=== PATIENT | female | born 1970 | race Caucasian/White ===

== ENCOUNTER 2017-05-26 13:33 | Emergency (ER) | payer MEDICAID, OTHER ==
[2017-05-26 13:46] VITALS: BP 142/85
--- NOTE | 2017-05-26 14:00 | UC ---
[facility] Dental HPI - HPI Summary HPI Summary: complaint of dental pain that started approx 2 months ago -right front tooth bottom jaw2 days ago pain has worsened and is constant chewing makes it more painful pressure in her right ear alternating tylenol and ibuprofen without effect has dental appt 05/28/17 - History of Current Complaint Chief Complaint: UCDentalProblem Stated Complaint: DENTAL COMPLAINT Time Seen by Provider: 05/26/17 13:49 Hx Obtained From: Patient Hx Last Menstrual Period: 05/04/17 - Allergies/Home Medications Allergies/Adverse Reactions: Allergies Allergy/AdvReac Type Severity Reaction Status Date / Time Sulfa Antibiotics Allergy Hives Verified 05/26/17 13:46 Ibuprofen AdvReac Vomiting Verified 05/26/17 13:46 Home Medications: Home Medications Baclofen TAB* [Lioresal TAB*] 10 mg PO TID PRN 05/26/17 [History Confirmed 05/26] Hydrochlorothiazide TAB* [Hydrodiuril TAB*] 25 mg PO DAILY 05/26/17 [History Confirmed 05/26/17] Labetalol TAB* [Trandate TAB*] 100 mg PO BID 05/26/17 [History Confirmed ] Morphine TAB (NF) [Morphine 30 MG TAB (NF)] 15 mg PO Q6H PRN 05/26/17 [History Confirmed 05/26/17] Omeprazole CAP* [Prilosec CAP* 20 MG] 40 mg PO EVERY OTHER DAY 05/26/17 [ History Confirmed 05/26/17] Sertraline* [Zoloft*] 200 mg PO DAILY 05/26/17 [History Confirmed 05/26/17] PMH/Surg Hx/FS Hx/Imm Hx Previously Healthy: Yes - chronic back pain Cardiovascular History: Hypertension - Surgical History Surgical History: Yes Surgery Procedure, Year, and Place: right knee 1995 - Family History Known Family History: Negative: Cardiac Disease, Hypertension, Diabetes - Social History Occupation: Employed Full-time Lives: With Family Alcohol Use: None Substance Use Type: None Smoking Status (MU): Heavy Every Day Tobacco Smoker Amount Used/How Often: 1 ppd Cessation Counseling: Patient Advised to Stop Review of Systems Constitutional: Negative Skin: Negative Eyes: Negative ENT: Dental Pain Respiratory: Negative Cardiovascular: Negative Gastrointestinal: Negative Genitourinary: Negative Motor: Negative Neurovascular: Negative Musculoskeletal: Negative Neurological: Negative Psychological: Negative All Other Systems Reviewed And Are Negative: Yes Physical Exam Triage Information Reviewed: Yes Appearance: No Pain Distress, Well-Nourished Vital Signs: Initial Vital Signs Temp 98.4 F 05/26/17 13:40 Pulse 78 05/26/17 13:40 Resp 16 05/26/17 13:40 BP 142/85 05/26/17 13:40 Pulse Ox 97 05/26/17 13:40 Vital Signs Reviewed: Yes Eyes: Positive: Conjunctiva Clear ENT: Positive: Pharynx normal, TMs normal. Negative: Nasal congestion Dental: Positive: Abscess @ - between Neck: Positive: No Lymphadenopathy Respiratory: Positive: Lungs clear, Normal breath sounds, No respiratory distress Cardiovascular: Positive: RRR, No Murmur, Pulses Normal Abdomen Description: Positive: Nontender, Soft Bowel Sounds: Positive: Present Musculoskeletal: Positive: No Edema Neurological: Positive: Alert Psychological Exam: Normal Skin Exam: Normal Dental Complaint Course/Dx - Course Course Of Treatment: exam completed. 46yr old female pt with dental abscess [id number], will start amoxicillin today, no rx for narcotics d/t currently taking morphineER 15 mg tab PO TID. will medicate with zofran and toradol today then she can continue tylenol or ibuprofen until seen by dentist. has followup with dentist 05/28/17 - Differential Dx/Diagnosis Differential Diagnosis/Dx: Dental Abscess, Dental Caries Provider Diagnoses: dental abscess, elevated blood pressure Discharge - Discharge Plan Condition: Stable Disposition: HOME Prescriptions: Amoxicillin CAP* [Amoxicillin 500 MG CAP*] 500 mg PO Q12H #20 cap Patient Education Materials: Dental Abscess (ED) Referrals: [facility] [Outside] Additional Instructions: DENTAL ABSCESS What is a Dental Abscess? A dental abscess is an infection around the root of a tooth or in the gums or jawbone. The infection causes pus to collect, and a lump can appear. Dental abscesses often get their start when bacteria invade a decayed tooth; the decay may then travel to the gums or jawbone. Decay can also begin in the mouth when teeth are not brushed or flossed properly. Symptoms Might Include: In general, you'll start to have a fever, redness and swelling of the gums or cheek. If you have a lump it may feel hot. Other signs include tooth or mouth pain, a loose tooth, or not being able to close your mouth all the way. If the abscess spreads, your face, neck, or chest may swell. Treatment Recommendations: Rinse your mouth with warm water every hour or as needed to ease the pain. This will help draw the infection from the abscess. For pain, you may take non-prescription medicines such as acetaminophen ( Tylenol) or ibuprofen (Motrin, Advil). To help ease the pain, do not chew on the sore side for at least 2 days; you may need to limit yourself to a liquid diet. Putting ice on your face over the affected area may also relieve the pain. Apply the ice for 10 to 20 minutes out of every hour. Do not leave the ice on for long periods or you can get frostbite. If the abscess is drained, there may be a small hole or drain. Keep the area free of food by rinsing with water after eating. You'll need to return or be seen by a dentist to have the drain removed. The healthcare provider may have prescribed an antibiotic medicine. The medicine should be taken until it is completely gone, even if you are feeling better. If you stop taking the medicine early, the infection may not be completely gone, and the medication may not work the next time. To prevent abscesses: [place] regularly with a toothbrush recommended by your dentist. Floss daily and use a fluoride mouthwash, toothpaste, tablets, or supplements as instructed by your dentist or dental hygienist. Reduce the amount of sugar in your diet. Call Your Doctor or Return Here IF: You have a high temperature Your pain becomes worse You have any new symptoms or problems that may be due to the medicine you are taking You have new or increased swelling in your face, jaw, cheek, eye, or neck You have any other new symptoms that worry you
[2017-05-26] MEDS ORDERED: Ketorolac INJ* 60 MG/2 ML VIAL IM ONE (14:04)
[2017-05-26] MEDS ORDERED: Ondansetron ODT TAB* 4 MG PO ONE (14:06)
== END 2017-05-26 14:44 | disposition home or self-care (01) ==
LOC: UCCORT 13:33
DX: K04.7 Periapical abscess without sinus (principal); R03.0 Elevated blood-pressure reading, without diagnosis of hypertension; I10 Essential (primary) hypertension; Z87.891 Personal history of nicotine dependence; M54.9 Dorsalgia, unspecified
CPT/HCPCS: 96372; 99212; A9270-GY; G0463; J1885

== ENCOUNTER 2017-09-01 13:04 | Emergency (ER) | payer MEDICAID, OTHER ==
--- NOTE | 2017-09-01 13:13 | UC ---
Dental HPI - HPI Summary HPI Summary: 47 y/o female presents to the urgent care c/o Rt upper jaw dental pain since . Pt states pain is 10/10. She reports she is taking Morphine PO for degenerative disc disease on pain management at [facility]. Morphine has helped. She called a dentist but they told her to come to the urgent care since they couldn't give her a soon appt. Pt denies fever, RODARTE, TMJ pain, trismus , SOB, chest pain, N/V/D - History of Current Complaint Stated Complaint: TOOTH PAIN Time Seen by Provider: 09/01/17 13:12 Hx Obtained From: Patient Hx Last Menstrual Period: 08/16/2017 ?: No Onset/Duration: Sudden Onset, Lasting Days - 2 days, Still Present Severity: Severe Pain Intensity: 10 Aggravating Factor(s): Chewing Alleviating Factor(s): Other (see comments) - morphine - Allergies/Home Medications Allergies/Adverse Reactions: Allergies Allergy/AdvReac Type Severity Reaction Status Date / Time Sulfa Antibiotics Allergy Hives Verified 09/01/17 13:32 Home Medications: Home Medications Aspirin [Aspirin 81 MG TAB] 81 mg PO DAILY 09/01/17 [History Confirmed 09/01/17] PMH/Surg Hx/FS Hx/Imm Hx Previously Healthy: Yes Cardiovascular History: Hypertension GI/ History: Gastroesophageal Reflux Other Neurological History: Degenerative disc disease Psychological History: Depression - Surgical History Surgical History: Yes Surgery Procedure, Year, and Place: right knee 1995 - Family History Known Family History: Positive: Hypertension Negative: Cardiac Disease, Diabetes - Social History Occupation: Employed Full-time Lives: With Family Alcohol Use: None Substance Use Type: None Smoking Status (MU): Heavy Every Day Tobacco Smoker Amount Used/How Often: 1 ppd Review of Systems Constitutional: Negative Skin: Negative Eyes: Negative ENT: Other - RT upper molar pain Respiratory: Negative Cardiovascular: Negative Gastrointestinal: Negative Genitourinary: Negative Motor: Negative Neurovascular: Negative Musculoskeletal: Negative Neurological: Negative Psychological: Negative Is Patient Immunocompromised?: No All Other Systems Reviewed And Are Negative: Yes Physical Exam Triage Information Reviewed: Yes Appearance: Well-Appearing, No Pain Distress, Well-Nourished, Obese Vital Signs Reviewed: Yes Eye Exam: Normal Eyes: Positive: Conjunctiva Clear ENT Exam: Normal ENT: Positive: Normal ENT inspection, Hearing grossly normal, Pharynx normal, TMs normal - B/L. Negative: Tonsillar swelling, Tonsillar exudate, Trismus Dental: Positive: Percussion Tenderness @ - on molar 4, Gross Decay/Caries @, Cellulitis @ - around molar 2 and 4 of the RT upper jaw, Cervical Lymphadenopathy - anterior cervical lymphnode tender and enlarged Neck exam: Normal Neck: Positive: Supple, Nontender Respiratory Exam: Normal Respiratory: Positive: Chest non-tender, Lungs clear, Normal breath sounds Cardiovascular Exam: Normal Cardiovascular: Positive: RRR, No Murmur, Pulses Normal, Brisk Capillary Refill Abdominal Exam: Normal Abdomen Description: Positive: Nontender, No Organomegaly, Soft. Negative: CVA Tenderness (R), CVA Tenderness (L) Bowel Sounds: Positive: Present Musculoskeletal Exam: Normal Musculoskeletal: Positive: Strength Intact, ROM Intact, No Edema Neurological Exam: Normal Psychological Exam: Normal Skin Exam: Normal Dental Complaint Course/Dx - Course Course Of Treatment: 47 y/o female presents to the urgent care c/o Rt upper jaw dental pain since 08/30/2017. Pt states pain is 10/10. She reports she is taking Morphine PO for degenerative disc disease on pain management at [facility]. Morphine has helped. She called a dentist but they told her to come to the urgent care since they couldn't give her a soon appt. Pt denies fever, RODARTE, TMJ pain, trismus, SOB, chest pain, N/V/D. HX obtained. Pt with molar #2 and 4 of the Rt upper jaw with caries and swelling around it on examination. POt Rx Amoxicillin PO and Naproxen PO for pain. Pt given viscous lidocaine at the clinic and pain decrease. Pt advised F/u with Dentist or a dentist from the list provided as soon as possible for further treatment. Pt's BP elevated, PT with PMHX of HTN. Pt advised to decrease salt in your diet, monitor your BP, if it continues to be elevated please f/y with your PCP for further management. Pt understood and agreed with plan of care. - Differential Dx/Diagnosis Differential Diagnosis/Dx: Dental Abscess, Dental Caries, Fractured Tooth, Peritonsillar Abcess, TMJ Syndrome, Tonsillitis Provider Diagnoses: 1- Acute dental pain w/ cellulitis of molar #2 and 4. 2- Dental caries at molar #4. 3- Uncontrolled HTN Discharge - Discharge Plan Condition: Stable Disposition: HOME Prescriptions: Amoxicillin PO (*) [Amoxicillin 500 MG CAP*] 500 mg PO TID #30 cap Naproxen TAB* [Naprosyn 250 mg TAB*] 500 mg PO Q8H PRN #30 tab PRN Reason: Pain Patient Education Materials: Toothache (ED), Low Sodium Diet (ED) Referrals: My Hernandez [Primary Care Provider] - 2 Days Additional Instructions: 1-Please take full course of antibiotic to avoid resistance. 2- Take Naproxen as instructed after meals to alleviate pain and swelling. 3- F/u with your Dentist or a dentist from the list provided as soon as possible for further treatment. 4- If symptoms do not improve or worsen please return to the urgent care or f/u with your PCP for further evaluation and treatment 5- Your BP today is elevated, please decrease salt in your diet, monitor your BP , if it continues to be elevated please f/y with your PCP for further management.
[2017-09-01 13:32] VITALS: BP 151/82
[2017-09-01] MEDS ORDERED: Lidocaine 2% VISCOUS* 15 ML UDC SWISH SPIT ONE ×2 (13:49→14:01)
== END 2017-09-01 14:27 | disposition home or self-care (01) ==
LOC: UCCORT 13:04
DX: K08.89 Other specified disorders of teeth and supporting structures (principal); L03.818 Cellulitis of other sites; K02.9 Dental caries, unspecified; I10 Essential (primary) hypertension; K21.9 Gastro-esophageal reflux disease without esophagitis; F17.210 Nicotine dependence, cigarettes, uncomplicated; Z88.2 Allergy status to sulfonamides
CPT/HCPCS: 99212; G0463

== ENCOUNTER 2018-08-21 13:10 | Emergency (ER) | payer SELFPAY ==
[2018-08-21 14:35] VITALS: BP 141/70
--- NOTE | 2018-08-21 15:19 | UC ---
FLU HPI - HPI Summary HPI Summary: Pt c/o sudden onset of cough, nasal congestion, sinus pressure X 1 day. - History of Current Complaint Chief Complaint: UCRespiratory Stated Complaint: CONGESTION,SORE THROAT Time Seen by Provider: 08/21/18 14:48 Hx Obtained From: Patient Hx Last Menstrual Period: 08/03/18 ?: No Onset/Duration: Sudden Onset, Lasting Days, Still Present Severity Currently: Mild Severity Initially: Moderate Pain Intensity: 7 Associated Signs & Symptoms: Positive: Cough, Nasal Congestion Related Hx: Possible Flu/Infectious Exposure - Risk Factors Influenza Risk Factors: Negative - Allergy/Home Medications Allergies/Adverse Reactions: Allergies Allergy/AdvReac Type Severity Reaction Status Date / Time Sulfa (Sulfonamide Allergy Hives Verified 08/21/18 14:24 Antibiotics) Home Medications: Home Medications Topiramate [Topamax] 50 mg PO DAILY 08/21/18 [History Confirmed 08/21/18] PMH/Surg Hx/FS Hx/Imm Hx Previously Healthy: Yes - Surgical History Surgical History: Yes Surgery Procedure, Year, and Place: right knee 1995. 2 C-SECTIONS - Family History Known Family History: Positive: Hypertension Negative: Cardiac Disease, Diabetes - Social History Occupation: Employed Full-time Lives: With Family Alcohol Use: None Substance Use Type: None Smoking Status (MU): Heavy Every Day Tobacco Smoker Amount Used/How Often: 1 ppd Have You Smoked in the Last Year: Yes Household Exposure Type: Cigarettes Review of Systems Constitutional: Fatigue Skin: Negative Eyes: Negative ENT: Sore Throat, Sinus Congestion, Sinus Pain/Tenderness Respiratory: Cough Cardiovascular: Negative Gastrointestinal: Negative Genitourinary: Negative Motor: Negative Neurovascular: Negative Musculoskeletal: Negative Neurological: Headache Psychological: Negative Is Patient Immunocompromised?: No All Other Systems Reviewed And Are Negative: Yes Physical Exam Triage Information Reviewed: Yes Appearance: Ill-Appearing Vital Signs: Initial Vital Signs Temp 98.1 F 08/21/18 14:26 Pulse 67 08/21/18 14:26 Resp 18 08/21/18 14:26 BP 141/70 08/21/18 14:26 Pulse Ox 99 08/21/18 14:26 Vital Signs Reviewed: Yes Eye Exam: Normal ENT Exam: Other ENT: Positive: Nasal congestion, Sinus tenderness Dental Exam: Normal Neck exam: Normal Respiratory Exam: Normal Cardiovascular Exam: Normal Musculoskeletal Exam: Normal Neurological: Positive: Alert Psychological Exam: Normal Skin Exam: Normal Diagnostics - Laboratory Diagnostic Studies Completed/Ordered: rapid strep: negative Flu Course/Dx - Differential Dx/Diagnosis Differential Diagnosis/HQI/PQRI: Bronchitis, Influenza, Upper Respiratory Infection Provider Diagnoses: viral syndrome Discharge - Sign-Out/Discharge Documenting (check all that apply): Patient Departure All imaging exams completed and their final reports reviewed: No Studies - Discharge Plan Condition: Stable Disposition: HOME Prescriptions: Benzonatate CAP* [Tessalon 100 MG CAP*] 100 mg PO Q8H PRN #21 cap PRN Reason: Cough Guaifenesin/Pseudo 600/60(NF) [Mucinex D 600/60 (NF)] 1 tab PO Q12H #10 tab predniSONE [Prednisone 20 MG TAB] 20 mg PO DAILY #4 tablet Patient Education Materials: Viral Syndrome (ED) Referrals: My Hernandez [Primary Care Provider] - If Needed - Billing Disposition and Condition Condition: STABLE Disposition: Home - Attestation Statements Provider Attestation: I was available for consult. This patient was seen by the [facility]. The patient was not presented to, seen by, or examined by me. -Blanquita
== END 2018-08-21 15:29 | disposition home or self-care (01) ==
LOC: UCCORT 13:10
DX: B34.9 Viral infection, unspecified (principal); Z88.1 Allergy status to other antibiotic agents; F17.210 Nicotine dependence, cigarettes, uncomplicated
CPT/HCPCS: 87651; 99212; G0463